=== PATIENT | female | born 1990 | race Two or more races ===

== ENCOUNTER 2018-01-01 16:37 | Outpatient (CLI) | payer OTHER ==
--- NOTE | 2018-01-01 17:49 | Non Stress Test Report ---
Non Stress Test Datetime Report Generated by CPN: 01/01/2018 17:48 DEMOGRAPHIC EGA NST: 35.4 INDICATION Indication for Study: Ordered by Provider MONITORING Monitor Explained: Monitor Explained; Test Explained; Patient Verbalized Understanding Time on Monitor: 01/01/2018 16:48 Time off Monitor: 01/01/2018 17:24 NST Duration: 36 NST INTERVENTIONS NST Interventions: PO Hydration; Reposition Patient Physician Notified NST: Dr. Shar BABY A: [id number] BABY A Movement : Present Contraction Frequency : irregular FHR Baseline : 130 Accelerations : 15X15 Decelerations : None Variability : Moderate 6-25bpm NST Review: Meets Criteria for Reactive NST NST Review and Verified By : Marta Cruz RN NST REPORT Report Trigger: Send Report
== END 2018-01-01 17:34 | disposition home or self-care (01) ==
LOC: LC 16:37
PROVIDERS: ATTEND Obstetrics & Gynecology
PROC: 4A1HXCZ Monitoring of Products of Conception, Cardiac Rate, External Approach (ICD-10-PCS; principal; 2018-01-01)
DX: Z34.93 Encounter for supervision of normal pregnancy, unspecified, third trimester (principal)
CPT/HCPCS: 59025

== ENCOUNTER 2018-01-05 16:41 | Outpatient (CLI) | payer OTHER ==
[2018-01-05 17:23] LABS: APPEARANCE,URINE SLIGHTLY-CLOUDY; BILIRUBIN,URINE NEGATIVE (NEGATIVE); COLOR,URINE YELLOW; GLUCOSE, URINE NEGATIVE (NEGATIVE); KETONES,URINE NEGATIVE (NEGATIVE); LEUKOCYTE ESTERASE,URINE MODERATE (NEGATIVE); NITRITE,URINE NEGATIVE (NEGATIVE); PROTEIN,URINE >=500 mg/dL (NEGATIVE); URINE SPECIFIC GRAVITY 1.007; UROBILINOGEN,URINE NEGATIVE mg/dL (<2.0)
[2018-01-05 17:35] LABS: ABSOLUTE LYMPHOCYTES (AUTO) 1.6 10^3/uL (0.5-4.7); ABSOLUTE MONOCYTES (AUTO) 0.3 10^3/uL (0.1-1.4); ABSOLUTE NEUT (AUTO) 3.7 10^3/uL (1.7-8.2); BASOPHILS % (AUTO) 0.5 % (0-2); EOSINOPHILS % (AUTO) 0.2 % (0-6); HEMATOCRIT 32.9 % (36.0-47.0); LYMPHOCYTES % (AUTO) 28.7 % (13-45); MEAN CORPUSCULAR HEMOGLOBIN 27.2 pg (27.0-33.4); MEAN CORPUSCULAR HGB CONC 33.6 g/dL (32.0-36.0); MEAN CORPUSCULAR VOLUME 81 fl (80-97); MONOCYTES % (AUTO) 5.5 % (3-13); PLATELET COUNT 176 10^3/uL (150-450); RED BLOOD COUNT 4.06 10^6/uL (3.72-5.28); RED CELL DISTRIBUTION WIDTH 15.3 % (11.5-14.0); SEGMENTED NEUTROPHILS % (AUTO) 65.1 % (42-78); TOTAL CELLS COUNTED % (AUTO) 100 %; WHITE BLOOD COUNT 5.6 10^3/uL (4.0-10.5)
[2018-01-05 17:47] LABS: URINE CREATININE 41.4 mg/dL (16-327)
[2018-01-05 17:50] LABS: URINE PROTEIN 455.1 mg/dL (<12)
[2018-01-05 17:51] LABS: URINE AMPHETAMINES SCREEN NEGATIVE; URINE BARBITURATES SCREEN NEGATIVE; URINE BENZODIAZEPINES SCREEN NEGATIVE; URINE COCAINE SCREEN NEGATIVE; URINE MARIJUANA (THC) SCREEN NEGATIVE; URINE METHADONE SCREEN NEGATIVE; URINE PHENCYCLIDINE SCREEN NEGATIVE
[2018-01-05 17:58] LABS: ALANINE AMINOTRANSFERASE 32 U/L (9-52); ALBUMIN 2.8 g/dL (3.5-5.0); ALKALINE PHOSPHATASE 108 U/L (38-126); ANION GAP 8 (5-19); ASPARTATE AMINO TRANSFERASE 33 U/L (14-36); BILIRUBIN,DIRECT 0.1 mg/dL (0.0-0.4); BILIRUBIN,TOTAL 0.3 mg/dL (0.2-1.3); BLOOD UREA NITROGEN 9 mg/dL (7-20); CALCIUM 8.7 mg/dL (8.4-10.2); CARBON DIOXIDE 20 mmol/L (22-30); CHLORIDE 109 mmol/L (98-107); GLUCOSE 101 mg/dL (75-110); POTASSIUM 4.4 mmol/L (3.6-5.0); SODIUM 136.5 mmol/L (137-145); TOTAL PROTEIN 5.7 g/dL (6.3-8.2); URIC ACID 5.3 mg/dL (2.5-6.2)
== END 2018-01-05 18:48 | disposition home or self-care (01) ==
LOC: LC 16:41
PROVIDERS: ATTEND Student in an Organized Health Care Education/Training Program
DX: O13.3 Gestational [pregnancy-induced] hypertension without significant proteinuria, third trimester (principal); Z3A.36 36 weeks gestation of pregnancy
CPT/HCPCS: 36415; 59025; 80053; 80307; 81001; 82570; 83615; 84156; 84550; 85025

== ENCOUNTER 2018-01-08 10:03 | Inpatient (IN) | payer OTHER ==
--- NOTE | 2018-01-08 10:15 | Non Stress Test Report ---
Non Stress Test Datetime Report Generated by CPN: 01/08/2018 10:15 DEMOGRAPHIC EGA NST: 36.1 INDICATION Indication for Study: Gestational Hypertension MONITORING Monitor Explained: Monitor Explained; Test Explained; Patient Verbalized Understanding Time on Monitor: 01/05/2018 16:56 Time off Monitor: 01/05/2018 18:40 NST Duration: 104 NST INTERVENTIONS NST Interventions: PO Hydration Physician Notified NST: Dr. Barboza BABY A: [id number] BABY A Movement : Present Contraction Frequency : 0 FHR Baseline : 120 Accelerations : 15X15 Decelerations : None Variability : Moderate 6-25bpm NST Review and Verified By : SAVANNAH Aleman NST Results: Reactive NST REPORT Report Trigger: Send Report
[2018-01-08 10:52] LABS: ABSOLUTE LYMPHOCYTES (AUTO) 1.4 10^3/uL (0.5-4.7); ABSOLUTE MONOCYTES (AUTO) 0.3 10^3/uL (0.1-1.4); BASOPHILS % (AUTO) 0.5 % (0-2); EOSINOPHILS % (AUTO) 0.2 % (0-6); HEMATOCRIT 34.1 % (36.0-47.0); HEMOGLOBIN 11.5 g/dL (12.0-15.5); LYMPHOCYTES % (AUTO) 24.1 % (13-45); MEAN CORPUSCULAR HEMOGLOBIN 27.3 pg (27.0-33.4); MEAN CORPUSCULAR HGB CONC 33.7 g/dL (32.0-36.0); MEAN CORPUSCULAR VOLUME 81 fl (80-97); MONOCYTES % (AUTO) 5.6 % (3-13); PLATELET COUNT 189 10^3/uL (150-450); RED BLOOD COUNT 4.21 10^6/uL (3.72-5.28); RED CELL DISTRIBUTION WIDTH 15.6 % (11.5-14.0); SEGMENTED NEUTROPHILS % (AUTO) 69.6 % (42-78); TOTAL CELLS COUNTED % (AUTO) 100 %; WHITE BLOOD COUNT 5.8 10^3/uL (4.0-10.5)
[2018-01-08 11:04] LABS: APPEARANCE,URINE CLOUDY; BILIRUBIN,URINE NEGATIVE (NEGATIVE); COLOR,URINE AMBER; GLUCOSE, URINE NEGATIVE (NEGATIVE); KETONES,URINE TRACE mg/dL (NEGATIVE); LEUKOCYTE ESTERASE,URINE TRACE (NEGATIVE); NITRITE,URINE NEGATIVE (NEGATIVE); PROTEIN,URINE >=500 mg/dL (NEGATIVE); URINE SPECIFIC GRAVITY 1.038; UROBILINOGEN,URINE NEGATIVE mg/dL (<2.0)
[2018-01-08 11:11] LABS: ALANINE AMINOTRANSFERASE 31 U/L (9-52); ALBUMIN 2.8 g/dL (3.5-5.0); ALKALINE PHOSPHATASE 110 U/L (38-126); ANION GAP 8 (5-19); ASPARTATE AMINO TRANSFERASE 33 U/L (14-36); BILIRUBIN,DIRECT 0.1 mg/dL (0.0-0.4); BILIRUBIN,TOTAL 0.3 mg/dL (0.2-1.3); BLOOD UREA NITROGEN 13 mg/dL (7-20); CARBON DIOXIDE 22 mmol/L (22-30); CHLORIDE 107 mmol/L (98-107); GLUCOSE 77 mg/dL (75-110); POTASSIUM 4.5 mmol/L (3.6-5.0); SODIUM 136.9 mmol/L (137-145); TOTAL PROTEIN 5.7 g/dL (6.3-8.2)
[2018-01-08 11:21] LABS: URINE BARBITURATES SCREEN NEGATIVE; URINE BENZODIAZEPINES SCREEN NEGATIVE; URINE COCAINE SCREEN NEGATIVE; URINE MARIJUANA (THC) SCREEN NEGATIVE; URINE METHADONE SCREEN NEGATIVE; URINE PHENCYCLIDINE SCREEN NEGATIVE
[2018-01-08 11:27] LABS: URINE AMPHETAMINES SCREEN NEGATIVE
[2018-01-08] MEDS ORDERED: OXYTOCIN/NORMAL SALINE 20 UNIT/1,000 ML RTUINJ IV PRN ×2 (13:08→20:37)
--- NOTE | 2018-01-08 14:15 | Admission Physical ---
Datetime Report Generated by CPN: 01/08/2018 14:14 CURRENT ADMISSION Chief Complaint: Sent from OB Office for Evaluation and Treatment - Please Specify Chief Complaint Other: sent by LUBA Bejarano for 9000mg protein iin urine. no sx pre-e. labs at [facility] normal Indication for Induction: IUGR; PreEclampsia Admit Impression : , Intrauterine ; No Active Labor Admit Plan: Admit to Unit; Initiate Labor Protocol Admit Plan- Other: after disussion with Dr Tang, admit for IOL, no magnesium for now ALLERGIES Medication Allergies: Yes Medication Allergies: amoxicillin/Hives (01/08/2018) Latex: No Latex Allergies Food Allergies: N/A Environmental Allergies: N/A OBSTETRICAL HISTORY EDC: 02/01/2018 00:00 : 4 Para: 1 Term: 1 : 0 IAB: 2 Ectopic: 0 Livin Cesareans: 0 VBACs: 0 Multiple Births: 0 Gestational Diabetes: No Rh Sensitization: No Incompetent Cervix: No MAITE: No Infertility: No ART Treatment: No Uterine Anomaly: No IUGR: No Hx Previous C/S: No Macrosomia: No Hx Loss/Stillborn: Yes PIH: No Hx : No Placenta Previa/Abruption: No Depression/PP Depression: No PTL/PROM: No Post Hemorrhage: No Current Procedures: Ultrasound; NST Obstetrical History Comments: Has had elevated B/P at office. Seen 01/05/18 for serial B/P. SEE RECORDS Alcohol: No Marijuana : No Cocaine: No Other Illicit Drugs: No Cigarettes: Unknown if ever Smoked. [id number] MEDICAL HISTORY Diabetes: No Blood Transfusion: No Pulmonary Disease (Asthma, TB): No Breast Disease: No Hypertension: No [employer] Surgery: No Heart Disease: No Hosp/Surgery: Yes Autoimmune Disorder: No Anesthetic Complications: No Kidney Disease: No Abnormal Pap Smear: Yes Neuro/Epilepsy: No Psychiatric Disorders: No Other Medical Diseases: No Hepatitis/Liver Disease: No Significant Family History: No Varicosities/Phlebitis: No Trauma/Violence : No Thyroid Dysfunction: No Medical History Comments: D_C in 2013 _ 2016, Abnormal Pap Smears- showed HPV but follow up test came back negative- 2011. INFECTIOUS HISTORY Gonorrhea: No Genital Herpes: No Chlamydia: No Tuberculosis: No Syphilis: No Hepatitis: No HIV/AIDS Exposure: No Rash or Viral Illness: No HPV: No PHYSICAL EXAM General: Normal HEENT: Normal Neurologic: Normal Thyroid: Deferred Heart: Normal Lungs: Normal Breast: Deferred Back: Normal Abdomen: Normal Genitourinary Exam: Normal Extremities: Normal DTRs: Normal Pelvic Type: Adequate Physical Exam Comments: DTRs 2+/2+. pelvis proven to 8#10 Vital Signs: Reviewed VAGINAL EXAM Dilatation: 2-3 Effacement: 50 Station: -1 Contraction Comments: rare FETUS A EGA: 36.4 Monitoring: External US FHR- Baseline: 130 Variability: Moderate 6-25bpm Accelerations: 15X15 Decelerations: None FHR Category: Category I Estimated Weight (gm): 2500 Presentation: Vertex Admit Comment: at 36+4 by LMP c/w 7w sono. admitted for IOL due to IUGR with increased dopplers and preeclampsia. comgt with dr Tang. GBS unknown-will treat, GBS result pending. P:pitocin, anticipate PLANS FOR LABOR AND DELIVERY Labor and Delivery: None Pain Management: Natural; Epidural Other Pain Management Plans: Natural as much as possilbe. Feeding Preference: Both Benefit of Breast Feed Discussed: Yes Circumcision: Yes INFORMED CONSENT Assignment: Jonathan Tang MD Signature: with User ID: [email or web address] : with User ID: [email or web address]
[2018-01-08] MEDS ORDERED: VANCOMYCIN HCL 1,000 MG in DEXTROSE 5%-WATER 250 ML IV SCH (15:00)
[2018-01-08] MEDS: RINGERS SOLUTION,LACTATED 1,000 ML IV PRN ×3 (15:53→20:05)
[2018-01-08] MEDS ORDERED: OXYTOCIN/NORMAL SALINE 20 UNIT/1,000 ML RTUINJ ONE ×2 (16:17→19:37)
[2018-01-08] MEDS ORDERED: ONDANSETRON HCL INJ/PF 4 MG/2 ML SDV ONE ×2 (16:18→22:39)
[2018-01-08] MEDS: VANCOMYCIN HCL 1,000 MG in DEXTROSE 5%-WATER 250 ML IV SCH (16:32)
[2018-01-08] MEDS ORDERED: PHENYLEPHRINE HCL INJ/PF 10 MG/1 ML SDV ONE (18:46)
[2018-01-08] MEDS ORDERED: FENTANYL CITRATE INJ/PF 100 MCG/2 ML AMPUL ONE (18:46)
[2018-01-08] MEDS ORDERED: EPHEDRINE SULFATE INJ 50 MG/1 ML AMPULE ONE (18:46)
[2018-01-08] MEDS ORDERED: FENTANYL/BUPIVACAINE/NS/PF 200 MCG/100 ML RTUINJ EPI ONE (18:46)
[2018-01-08] MEDS ORDERED: BUPIVACAINE HCL 0.5 % INJ/PF 30 ML SDV ONE ×2 (18:48→18:51)
[2018-01-08 19:31] LABS: ABSOLUTE BASOPHILS # (AUTO) 0.1 10^3/uL (0.0-0.2); ABSOLUTE LYMPHOCYTES (AUTO) 2.6 10^3/uL (0.5-4.7); ABSOLUTE MONOCYTES (AUTO) 0.5 10^3/uL (0.1-1.4); ABSOLUTE NEUT (AUTO) 5.5 10^3/uL (1.7-8.2); BASOPHILS % (AUTO) 1.2 % (0-2); HEMATOCRIT 38.7 % (36.0-47.0); LYMPHOCYTES % (AUTO) 30.5 % (13-45); MEAN CORPUSCULAR HEMOGLOBIN 27.1 pg (27.0-33.4); MEAN CORPUSCULAR HGB CONC 33.5 g/dL (32.0-36.0); MEAN CORPUSCULAR VOLUME 81 fl (80-97); MONOCYTES % (AUTO) 5.5 % (3-13); PLATELET COUNT 209 10^3/uL (150-450); RED BLOOD COUNT 4.79 10^6/uL (3.72-5.28); RED CELL DISTRIBUTION WIDTH 15.6 % (11.5-14.0); SEGMENTED NEUTROPHILS % (AUTO) 62.8 % (42-78); TOTAL CELLS COUNTED % (AUTO) 100 %; WHITE BLOOD COUNT 8.7 10^3/uL (4.0-10.5)
[2018-01-08] MEDS ORDERED: OXYTOCIN 10 UNIT/ML VIAL ONE (19:36)
[2018-01-08] MEDS ORDERED: LIDOCAINE 1% INJ-PF (10 MG/ML) 30 ML SDV ONE (19:37)
[2018-01-08] MEDS ORDERED: MISOPROSTOL 0.2 MG TABLET ONE ×2 (19:37→22:03)
[2018-01-08] MEDS ORDERED: ZOLPIDEM TARTRATE 5 MG TABLET PO PRN (20:37)
[2018-01-08] MEDS ORDERED: DIPH/PERTUSS(ACELL)/TETANUS VAC/PF 0.5 ML SYR (>=10YO) IM PRN (20:37)
[2018-01-08] MEDS ORDERED: PROMETHAZINE HCL 25 MG SUPP.RECT PR PRN (20:37)
[2018-01-08] MEDS ORDERED: BENZOCAINE/MENTHOL AEROSOL SPRAY 56 ML TOP PRN (20:37)
[2018-01-08] MEDS ORDERED: DIPHENHYDRAMINE HCL 25 MG CAPSULE PO PRN (20:37)
[2018-01-08] MEDS ORDERED: PROMETHAZINE HCL 25 MG TABLET PO PRN (20:37)
[2018-01-08] MEDS ORDERED: PSEUDOEPHEDRINE HCL 30 MG TABLET PO PRN (20:37)
[2018-01-08] MEDS ORDERED: PROMETHAZINE HCL INJ 25 MG/1 ML VIAL IV PRN (20:37)
[2018-01-08] MEDS ORDERED: GLYCERIN/WITCH HAZEL LEAF 1 EACH MED..PAD TP PRN (20:37)
[2018-01-08] MEDS ORDERED: MEASLES,MUMPS&RUBELLA VACC/PF 0.5 ML VIAL SUBCUT PRN (20:37)
[2018-01-08] MEDS ORDERED: ACETAMINOPHEN WITH CODEINE #3 TABLET PO PRN (20:37)
[2018-01-08] MEDS ORDERED: ACETAMINOPHEN 650 MG SUPP.RECT PR PRN (20:37)
[2018-01-08] MEDS ORDERED: MAGNESIUM HYDROXIDE SUSP 30 ML UDCUP PO PRN (20:37)
[2018-01-08] MEDS ORDERED: NA PHOS,M-B/NA PHOS,DI-BA (ADULT) 133 ML ENEMA PR PRN (20:37)
[2018-01-08] MEDS ORDERED: DIBUCAINE 1% OINTMENT 28 GM TP PRN (20:37)
--- NOTE | 2018-01-08 20:41 | PDOC DELIVERY SUMMARY ---
Delivery Summary - Maternal Risk Factors: Labor <37 wks Ruptured Membranes: AROM Fluids: Clear - Delivery Labor: Induction Presentation: Vertex Uterine Contraction Monitoring: External Support Person Present: Yes Placenta: Within Normal Limits Nuchal Cord: No - Medications Type of Anesthesia:: Epidural
[2018-01-08] MEDS ORDERED: MISOPROSTOL 0.1 MG TABLET PR ONE (21:00)
[2018-01-08] MEDS ORDERED: IBUPROFEN 800 MG TABLET ONE (21:18)
[2018-01-08] MEDS: IBUPROFEN 800 MG TABLET PO SCH (21:19)
[2018-01-08] MEDS ORDERED: TRANEXAMIC ACID INJ/PF 1,000 MG/10 ML SDV IV ONE ×2 (21:50→22:25)
[2018-01-08 22:17] LABS: HEMATOCRIT 27.1 % (36.0-47.0); MEAN CORPUSCULAR HEMOGLOBIN 27.6 pg (27.0-33.4); MEAN CORPUSCULAR HGB CONC 33.8 g/dL (32.0-36.0); MEAN CORPUSCULAR VOLUME 82 fl (80-97); PLATELET COUNT 213 10^3/uL (150-450); RED BLOOD COUNT 3.32 10^6/uL (3.72-5.28); RED CELL DISTRIBUTION WIDTH 15.4 % (11.5-14.0)
[2018-01-08] MEDS ORDERED: CARBOPROST TROMETHAMINE INJ 250 MCG/1 ML AMPULE ONE (22:23)
[2018-01-08] MEDS ORDERED: METHYLERGONOVINE MALEATE INJ/PF 0.2 MG/1 ML AMPULE ONE (22:23)
[2018-01-08 22:36] LABS: HEMOGLOBIN 9.2 g/dL (12.0-15.5)
[2018-01-08] MEDS ORDERED: ONDANSETRON HCL INJ/PF 4 MG/2 ML SDV IV ONE (23:00)
--- NOTE | 2018-01-08 23:02 | Warning Signs in Babies ---
VOD Warning Signs Datetime Report Generated by [facility]: 01/08/2018 23:01 VOD#[id number] -Warning Signs in Babies: Needs to be viewed. (01/01/2018 17:20:Cristina Meraz RN)
[2018-01-09] MEDS ORDERED: NORMAL SALINE 250 ML IV PRN (00:14)
[2018-01-09 00:18] LABS: HEMATOCRIT 25.5 % (36.0-47.0); HEMOGLOBIN 8.4 g/dL (12.0-15.5); MEAN CORPUSCULAR HGB CONC 32.9 g/dL (32.0-36.0); MEAN CORPUSCULAR VOLUME 82 fl (80-97); PLATELET COUNT 220 10^3/uL (150-450); RED CELL DISTRIBUTION WIDTH 15.7 % (11.5-14.0); WHITE BLOOD COUNT 21.2 10^3/uL (4.0-10.5)
[2018-01-09] MEDS ORDERED: LOPERAMIDE HCL 2 MG CAPSULE PO ONE (00:25)
[2018-01-09] MEDS ORDERED: LOPERAMIDE HCL 2 MG CAPSULE ONE (00:38)
--- NOTE | 2018-01-09 02:50 | Delivery Summary ---
Del Sum A-C Datetime Report Generated by CPN: 01/09/2018 02:50 DELIVERY PERSONNEL DELIVERY PERSONNEL: [id number] Delivery Doctor:: Jonathan Tang MD Labor and Delivery Nurse:: Cristina Meraz RN Correspondent/WASHING MACHINE STRIPER: Giorgio Ertel, WASHING MACHINE STRIPER MATERNAL INFORMATION Delivery Anesthesia: Epidural Medications After Delivery: Pitocin Bolus-Please Comment; Pitocin Drip 20 Units/1000ml NSS; Other-Please Comment Meds After Delivery Comment: NS with Pitocin 20 units/liter IVF bolus x 2 liters, Cytotec 1000mcg IN, Hemobate 250mcg IM, and TXA 1 gram IV. Received 2 units PRBC Maternal Complications: Hemorrhage; Other Other Maternal Complications: pre-eclampsia Complication Details: Severe Preeclampsia, hemmorhage received multiple medications and blood products. See records for further documentation. LABOR SUMMARY EDC: 02/01/2018 00:00 No. Babies in Womb: 1 Attempted: No Labor Anesthesia: Epidural LABOR INFORMATION Reason for Induction: Intrauterine Growth Retardation; Pre-Eclampsia Onset of Labor: 01/08/2018 17:04 Complete Dilatation: 01/08/2018 20:12 Oxytocin: Induction Group B Beta Strep: unknown Antibiotics # of Doses: 1 Antibiotics Time of Last Dose: 1600 Name of Antibiotic Given: Vanomycin Steroids Given: None Reason Steroids Not Administered: Not Applicable MEMBRANES Membranes Rupture Method: Artificial Rupture of Membranes: 01/08/2018 17:02 Length of Rupture (hr): 3.40 Amniotic Fluid Color: Bloody Amniotic Fluid Amount: Moderate Amniotic Fluid Odor: None STAGES OF LABOR Stage 1 hr: 3 Stage 1 min: 8 Stage 2 hr: 0 Stage 2 min: 14 Stage 3 hr: 0 Stage 3 min: 4 Total Time in Labor hr: 3 Total Time in Labor min: 26 VAGINAL DELIVERY Episiotomy: None Laceration #1: Vaginal Laceration Extension #1: N/A Laceration Repair: No Laceration Repair Note: vaginal scrape Sponge Count Correct: Yes Sharps Count Correct: Yes CSECTION DELIVERY Primary Indication: N/A Secondary Indication: N/A CSection Incidence: N/A CSection Incision: N/A BABY A INFORMATION Infant Delivery Date/Time: 01/08/2018 20:26 Method of Delivery: Vaginal Born in Route : No : N/A Forceps: N/A Vacuum Extraction: N/A Shoulder Dystocia : No PRESENTATION/POSITION BABY A Presentation: Cephalic Cephalic Presentation: Vertex Vertex Position: Left Occipital Anterior Breech Presentation: N/A PLACENTA INFORMATION BABY A Placenta Delivery Time : 01/08/2018 20:30 Placenta Method of Delivery: Spontaneous Placenta Status: Delivered SCORES BABY A Heart Rate 1 min: >100 bpm Resp Effort 1 min: Good Cry Reflex Irritability 1 min: Cough or Sneeze or Pulls Away Muscle Tone 1 min: Active Motion Color 1 min: Blue/Pale Resuscitation Effort 1 min: Tactile Stimulation SCORE 1 MIN: 8 Heart Rate 5 min: >100 bpm Resp Effort 5 min: Good Cry Reflex Irritability 5 min: Cough or Sneeze or Pulls Away Muscle Tone 5 min: Active Motion Color 5 min: Body [place], Extremities Blue Resuscitation Effort 5 min: Tactile Stimulation SCORE 5 MIN: 9 INFORMATION BABY A Gestational Age at Delivery: 36.4 Gestational Status: Late - 34- 36.6 Weeks Infant Outcome : Liveborn Condition : Stable Sex: Male IDENTIFICATION BABY A Verification Date/Time: 01/08/2018 20:37 ID Band Number: [id number] Mother's Name Verified: Yes RN Verifying : rn harsh Additional Verifying Personnel: emissions repair technician ertel WEIGHT/LENGTH BABY A Birthweight (gm): 2360 Weight (lb): 5 Weight (oz): 3 Infant Length (in): 17.75 Infant Length (cm): 45.09 CORD INFORMATION BABY A No. Cord Vessels: 3 Nuchal Cord : loose body cord x 1 Cord Blood Taken: Yes-For Storage (Mom's Blood type +) Infant Suction: Mouth ASSESSMENT BABY A Infant Complications: None Physical Findings at Delivery: Within Normal Limits Respirations: Appears Normal Skin to Skin: Yes Real Estate Leasing Agent/ALS Called : No Care By: RN Florencio and RN Merrill Transferred To: Remains with Mother BABY B INFORMATION : N/A SIGNATURES Signature: with User ID: [email or web address] : I was personally available for consultation and serving as supervising physician for the MLP.
[2018-01-09] MEDS: RINGERS SOLUTION,LACTATED 1,000 ML IV PRN (04:45)
[2018-01-09] MEDS: IBUPROFEN 800 MG TABLET PO SCH ×3 (07:02→22:37)
[2018-01-09] MEDS: FAMOTIDINE 20 MG TABLET PO SCH ×3 (07:04→22:37)
[2018-01-09] MEDS: VANCOMYCIN HCL 1,000 MG in DEXTROSE 5%-WATER 250 ML IV SCH (07:09)
[2018-01-09 08:58] LABS: HEMATOCRIT 29.7 % (36.0-47.0); HEMOGLOBIN 10.1 g/dL (12.0-15.5); MEAN CORPUSCULAR HEMOGLOBIN 28.1 pg (27.0-33.4); MEAN CORPUSCULAR VOLUME 83 fl (80-97); PLATELET COUNT 165 10^3/uL (150-450); RED CELL DISTRIBUTION WIDTH 15.6 % (11.5-14.0); WHITE BLOOD COUNT 20.6 10^3/uL (4.0-10.5)
[2018-01-09] MEDS ORDERED: IBUPROFEN 800 MG TABLET ONE (10:17)
--- NOTE | 2018-01-09 11:41 | PDOC PROGRESS REPORT ---
Subjective-OB Progress Note for:: 01/09/18 Subjective: states she is feeling much better since blood transfusion Physical Exam (OB) Vital Signs: Temp Pulse Resp BP Pulse Ox 99.6 F 75 16 92/56 L 100 01/09/18 06:46 01/09/18 06:46 01/09/18 06:46 01/09/18 06:46 01/09/18 06:46 Intake & Output 01/08/18 01/09/18 01/10/18 06:59 06:59 06:59 Intake Total 2455 Balance 2455 Weight 77.3 kg - Lochia Lochia Amount: Scant < 10 ml Lochia Color: Rubra/Red - Abdomen Fundal Description: Firm Fundal Height: u/u - u/2 - Abdominal Inspection: Normal Distension: No distension Tenderness: Nontender - Genitourinary Female External exam: Normal - Extremities Lower extremities: Rosie's sign - neg Calf: Normal, Nontender Objective-Diagnostic Laboratory: 01/09/18 08:02 01/08/18 10:37 01/08/18 01/08/18 01/08/18 13:56 19:20 22:09 WBC 8.7 21.0 H D RBC 4.79 3.32 L Hgb 13.0 9.2 L D Hct 38.7 27.1 L MCV 81 82 MCH 27.1 27.6 MCHC 33.5 33.8 RDW 15.6 H 15.4 H Plt Count 209 213 Seg Neutrophils % 62.8 Lymphocytes % 30.5 Monocytes % 5.5 Eosinophils % 0.0 Basophils % 1.2 Absolute Neutrophils 5.5 Absolute Lymphocytes 2.6 Absolute Monocytes 0.5 Absolute Eosinophils 0.0 Absolute Basophils 0.1 Blood Type A POSITIVE Antibody Screen NEGATIVE 01/09/18 01/09/18 00:03 08:02 WBC 21.2 H 20.6 H RBC 3.10 L 3.60 L Hgb 8.4 L 10.1 L Hct 25.5 L 29.7 L MCV 82 83 MCH 27.0 28.1 MCHC 32.9 34.0 RDW 15.7 H 15.6 H Plt Count 220 165 Seg Neutrophils % Lymphocytes % Monocytes % Eosinophils % Basophils % Absolute Neutrophils Absolute Lymphocytes Absolute Monocytes Absolute Eosinophils Absolute Basophils Blood Type Antibody Screen Assessment and Plan(PN) - Assessment and Plan (1) Vaginal delivery Is this a current diagnosis for this admission?: Yes (2) Anemia due to acute blood loss Is this a current diagnosis for this admission?: Yes (3) hemorrhage Is this a current diagnosis for this admission?: Yes (5) Pre-eclampsia affecting childbirth Is this a current diagnosis for this admission?: Yes - Time Spent with Patient Time with patient: Less than 15 minutes - Disposition Anticipated Discharge: Home Within: within 48 hours
[2018-01-09] MEDS: FERROUS SULFATE 325 MG TABLET PO SCH ×2 (16:02→18:10)
[2018-01-09] MEDS: DOCUSATE SODIUM 100 MG CAPSULE PO SCH ×2 (16:02→18:10)
[2018-01-09] MEDS: PRENATAL VITAMIN W DHA CAPSULE PO SCH (16:03)
[2018-01-09] MEDS: SENNOSIDES/DOCUSATE 8.6-50 MG 1 EACH TABLET PO SCH (16:03)
[2018-01-10] MEDS: IBUPROFEN 800 MG TABLET PO SCH ×3 (06:10→21:12)
[2018-01-10 07:15] LABS: ABSOLUTE LYMPHOCYTES (AUTO) 2.9 10^3/uL (0.5-4.7); ABSOLUTE MONOCYTES (AUTO) 0.8 10^3/uL (0.1-1.4); ABSOLUTE NEUT (AUTO) 7.9 10^3/uL (1.7-8.2); BASOPHILS % (AUTO) 0.3 % (0-2); EOSINOPHILS % (AUTO) 0.4 % (0-6); HEMATOCRIT 21.5 % (36.0-47.0); LYMPHOCYTES % (AUTO) 24.7 % (13-45); MEAN CORPUSCULAR HEMOGLOBIN 28.5 pg (27.0-33.4); MEAN CORPUSCULAR HGB CONC 34.6 g/dL (32.0-36.0); MEAN CORPUSCULAR VOLUME 82 fl (80-97); MONOCYTES % (AUTO) 6.8 % (3-13); PLATELET COUNT 126 10^3/uL (150-450); RED BLOOD COUNT 2.62 10^6/uL (3.72-5.28); RED CELL DISTRIBUTION WIDTH 15.9 % (11.5-14.0); SEGMENTED NEUTROPHILS % (AUTO) 67.8 % (42-78); TOTAL CELLS COUNTED % (AUTO) 100 %; WHITE BLOOD COUNT 11.7 10^3/uL (4.0-10.5)
[2018-01-10 07:16] LABS: HEMOGLOBIN 7.4 g/dL (12.0-15.5)
[2018-01-10 07:49] LABS: ALANINE AMINOTRANSFERASE 30 U/L (9-52); ALBUMIN 1.9 g/dL (3.5-5.0); ALKALINE PHOSPHATASE 69 U/L (38-126); ASPARTATE AMINO TRANSFERASE 47 U/L (14-36); BLOOD UREA NITROGEN 13 mg/dL (7-20); CALCIUM 7.7 mg/dL (8.4-10.2); GLUCOSE 69 mg/dL (75-110); POTASSIUM 4.4 mmol/L (3.6-5.0); URIC ACID 5.7 mg/dL (2.5-6.2)
[2018-01-10 07:54] LABS: CARBON DIOXIDE 23 mmol/L (22-30); CHLORIDE 113 mmol/L (98-107); SODIUM 139.7 mmol/L (137-145)
[2018-01-10 07:57] LABS: BILIRUBIN,TOTAL < 0.1 mg/dL (0.2-1.3)
[2018-01-10 07:58] LABS: ANION GAP 4 (5-19)
[2018-01-10] MEDS: FAMOTIDINE 20 MG TABLET PO SCH ×2 (10:44→21:12)
[2018-01-10] MEDS: SENNOSIDES/DOCUSATE 8.6-50 MG 1 EACH TABLET PO SCH (10:44)
[2018-01-10] MEDS: DOCUSATE SODIUM 100 MG CAPSULE PO SCH ×2 (10:44→18:28)
[2018-01-10] MEDS: FERROUS SULFATE 325 MG TABLET PO SCH ×2 (10:44→18:28)
[2018-01-10] MEDS: PRENATAL VITAMIN W DHA CAPSULE PO SCH (10:44)
--- NOTE | 2018-01-10 11:28 | PDOC PROGRESS REPORT ---
Subjective-OB Progress Note for:: 01/10/18 Subjective: reports bleeding slowing, pain controlled with current meds. denies needs Physical Exam (OB) Vital Signs: Temp Pulse Resp BP Pulse Ox 98.7 F 75 16 129/87 H 100 01/10/18 07:46 01/10/18 07:46 01/10/18 07:46 01/10/18 07:46 01/10/18 07:46 Intake & Output 01/09/18 01/10/18 01/11/18 06:59 06:59 06:59 Intake Total 2455 2200 120 Output Total 1240 Balance 2455 960 120 Weight 77.3 kg - Abdomen Description: Soft Hernia Present: No Fundal Description: Firm, Midline Fundal Height: u/u - u/2 - Abdominal Distension: No distension Tenderness: Nontender - Extremities Lower extremities: Rosie's sign - neg Calf: Normal, Nontender Objective-Diagnostic Laboratory: 01/10/18 06:27 01/10/18 06:27 01/08/18 01/10/18 01/10/18 13:56 06:27 06:27 WBC 11.7 H RBC 2.62 L Hgb 7.4 L D Hct 21.5 L MCV 82 MCH 28.5 MCHC 34.6 RDW 15.9 H Plt Count 126 L Seg Neutrophils % 67.8 Lymphocytes % 24.7 Monocytes % 6.8 Eosinophils % 0.4 Basophils % 0.3 Absolute Neutrophils 7.9 Absolute Lymphocytes 2.9 Absolute Monocytes 0.8 Absolute Eosinophils 0.0 Absolute Basophils 0.0 Sodium 139.7 Potassium 4.4 Chloride 113 H Carbon Dioxide 23 Anion Gap 4 L BUN 13 Creatinine 0.74 Est GFR ( Amer) > 60 Est GFR (Non-Af Amer) > 60 Glucose 69 L Uric Acid 5.7 Calcium 7.7 L Total Bilirubin < 0.1 L AST 47 H ALT 30 Alkaline Phosphatase 69 Total Protein 4.0 L Albumin 1.9 L Blood Type A POSITIVE Antibody Screen NEGATIVE Assessment and Plan(PN) - Assessment and Plan (1) Vaginal delivery Is this a current diagnosis for this admission?: Yes (2) Anemia due to acute blood loss Is this a current diagnosis for this admission?: Yes (3) hemorrhage Is this a current diagnosis for this admission?: Yes (4) Intrauterine growth restriction (IUGR) affecting care of mother Is this a current diagnosis for this admission?: Yes (5) Pre-eclampsia affecting childbirth Is this a current diagnosis for this admission?: Yes - Time Spent with Patient Time with patient: Less than 15 minutes - Disposition Anticipated Discharge: Home Within: within 48 hours
[2018-01-10 13:35] LABS: CHLAM PCR NOT DETECTED (NOT DETECT); GON PCR NOT DETECTED (NOT DETECT)
[2018-01-10 21:14] LABS: HEMATOCRIT 30.7 % (36.0-47.0); HEMOGLOBIN 10.5 g/dL (12.0-15.5); MEAN CORPUSCULAR HGB CONC 34.3 g/dL (32.0-36.0); MEAN CORPUSCULAR VOLUME 85 fl (80-97); PLATELET COUNT 153 10^3/uL (150-450); RED BLOOD COUNT 3.63 10^6/uL (3.72-5.28); RED CELL DISTRIBUTION WIDTH 15.8 % (11.5-14.0); WHITE BLOOD COUNT 12.8 10^3/uL (4.0-10.5)
[2018-01-11] MEDS: IBUPROFEN 800 MG TABLET PO SCH (06:02)
[2018-01-11 07:04] LABS: ABSOLUTE BASOPHILS # (AUTO) 0.1 10^3/uL (0.0-0.2); ABSOLUTE EOSINOPHILS # (AUTO) 0.1 10^3/uL (0.0-0.6); ABSOLUTE LYMPHOCYTES (AUTO) 2.3 10^3/uL (0.5-4.7); ABSOLUTE MONOCYTES (AUTO) 0.6 10^3/uL (0.1-1.4); ABSOLUTE NEUT (AUTO) 6.7 10^3/uL (1.7-8.2); BASOPHILS % (AUTO) 0.9 % (0-2); EOSINOPHILS % (AUTO) 0.6 % (0-6); HEMATOCRIT 27.4 % (36.0-47.0); HEMOGLOBIN 9.5 g/dL (12.0-15.5); LYMPHOCYTES % (AUTO) 23.5 % (13-45); MEAN CORPUSCULAR HEMOGLOBIN 29.2 pg (27.0-33.4); MEAN CORPUSCULAR HGB CONC 34.8 g/dL (32.0-36.0); MEAN CORPUSCULAR VOLUME 84 fl (80-97); MONOCYTES % (AUTO) 6.3 % (3-13); PLATELET COUNT 116 10^3/uL (150-450); RED BLOOD COUNT 3.26 10^6/uL (3.72-5.28); RED CELL DISTRIBUTION WIDTH 15.8 % (11.5-14.0); SEGMENTED NEUTROPHILS % (AUTO) 68.7 % (42-78); TOTAL CELLS COUNTED % (AUTO) 100 %; WHITE BLOOD COUNT 9.7 10^3/uL (4.0-10.5)
[2018-01-11 07:18] LABS: ALANINE AMINOTRANSFERASE 30 U/L (9-52); ALKALINE PHOSPHATASE 76 U/L (38-126); ANION GAP 5 (5-19); ASPARTATE AMINO TRANSFERASE 40 U/L (14-36); BILIRUBIN,DIRECT 0.1 mg/dL (0.0-0.4); BILIRUBIN,TOTAL 0.2 mg/dL (0.2-1.3); BLOOD UREA NITROGEN 9 mg/dL (7-20); CALCIUM 7.8 mg/dL (8.4-10.2); CARBON DIOXIDE 23 mmol/L (22-30); CHLORIDE 111 mmol/L (98-107); GLUCOSE 67 mg/dL (75-110); POTASSIUM 4.2 mmol/L (3.6-5.0); SODIUM 139.3 mmol/L (137-145); TOTAL PROTEIN 4.1 g/dL (6.3-8.2)
[2018-01-11 08:52] VITALS: BP 139/93
[2018-01-11] MEDS: SENNOSIDES/DOCUSATE 8.6-50 MG 1 EACH TABLET PO SCH (09:55)
[2018-01-11] MEDS: PRENATAL VITAMIN W DHA CAPSULE PO SCH (09:55)
[2018-01-11] MEDS: FERROUS SULFATE 325 MG TABLET PO SCH (09:55)
[2018-01-11] MEDS: FAMOTIDINE 20 MG TABLET PO SCH (09:55)
[2018-01-11] MEDS: DOCUSATE SODIUM 100 MG CAPSULE PO SCH (09:55)
--- NOTE | 2018-01-11 10:00 | PDOC PROGRESS REPORT ---
Subjective-OB Progress Note for:: 01/11/18 Subjective: PP Day#3, bottle feeding, A+, Rubella Immune. S/p 2 units PRBC due to PPH. Pt up and out of the bed this morning, states she is feeling much better, no complaints. Afebrile x 24 hours. VSS Physical Exam (OB) Vital Signs: Temp Pulse Resp BP Pulse Ox 98.7 F 74 17 139/93 H 99 01/11/18 08:52 01/11/18 08:52 01/11/18 08:52 01/11/18 08:52 01/11/18 08:52 Intake & Output 01/10/18 01/11/18 01/12/18 06:59 06:59 06:59 Intake Total 2200 720 Output Total 1240 Balance 960 720 - General General Appearance: Appears well, Alert In distress: None - PIH/Pre-Eclampsia DTR's: 1 + Clonus: Negative Headache: Absent Epigastric Pain: No Visual Changes: No - Lochia Lochia Amount: Small 10-25 ml Lochia Color: Rubra/Red - Abdomen Description: Soft, Round Hernia Present: No Fundal Description: Firm, Midline Fundal Height: u/u - u/2 - Respiratory Respiratory Status: No respiratory distress - Genitourinary Genitourinary Note: voiding - Extremities Upper extremity: Normal inspection Lower extremities: Edema - 1+ - Neurological Cognition: Normal Orientation: AAOx4 - Psychological Associated symptoms: Normal affect, Normal mood Objective-Diagnostic Laboratory: 01/11/18 06:40 01/11/18 06:40 01/08/18 01/10/18 01/11/18 13:56 20:30 06:40 WBC 12.8 H 9.7 RBC 3.63 L 3.26 L Hgb 10.5 L D 9.5 L Hct 30.7 L 27.4 L MCV 85 84 MCH 29.0 29.2 MCHC 34.3 34.8 RDW 15.8 H 15.8 H Plt Count 153 116 L Seg Neutrophils % 68.7 Lymphocytes % 23.5 Monocytes % 6.3 Eosinophils % 0.6 Basophils % 0.9 Absolute Neutrophils 6.7 Absolute Lymphocytes 2.3 Absolute Monocytes 0.6 Absolute Eosinophils 0.1 Absolute Basophils 0.1 Sodium Potassium Chloride Carbon Dioxide Anion Gap BUN Creatinine Est GFR ( Amer) Est GFR (Non-Af Amer) Glucose Uric Acid Calcium Total Bilirubin AST ALT Alkaline Phosphatase Total Protein Albumin Blood Type A POSITIVE Antibody Screen NEGATIVE 01/11/18 06:40 WBC RBC Hgb Hct MCV MCH MCHC RDW Plt Count Seg Neutrophils % Lymphocytes % Monocytes % Eosinophils % Basophils % Absolute Neutrophils Absolute Lymphocytes Absolute Monocytes Absolute Eosinophils Absolute Basophils Sodium 139.3 Potassium 4.2 Chloride 111 H Carbon Dioxide 23 Anion Gap 5 BUN 9 Creatinine 0.61 Est GFR ( Amer) > 60 Est GFR (Non-Af Amer) > 60 Glucose 67 L Uric Acid 5.0 Calcium 7.8 L Total Bilirubin 0.2 AST 40 H ALT 30 Alkaline Phosphatase 76 Total Protein 4.1 L Albumin 2.0 L Blood Type Antibody Screen Assessment and Plan(PN) - Assessment and Plan (1) Anemia due to acute blood loss Is this a current diagnosis for this admission?: Yes (2) hemorrhage Is this a current diagnosis for this admission?: Yes (3) Vaginal delivery Is this a current diagnosis for this admission?: Yes (4) Intrauterine growth restriction (IUGR) affecting care of mother Qualifiers: Fetus number: single or unspecified fetus Trimester: third trimester Qualified Code(s): O36.5930 - Maternal care for other known or suspected poor growth, third trimester, not applicable or unspecified Is this a current diagnosis for this admission?: Yes (5) Pre-eclampsia affecting childbirth Is this a current diagnosis for this admission?: Yes - Time Spent with Patient Time with patient: Less than 15 minutes Medications reviewed and adjusted accordingly: Yes - Disposition Anticipated Discharge: Home Disposition: stable condition
--- NOTE | 2018-01-19 15:24 | PDOC DISCHARGE SUMMARY ---
Final Diagnosis Discharge Date: 01/11/18 - Final Diagnosis (1) Anemia due to acute blood loss Is this a current diagnosis for this admission?: Yes (2) hemorrhage Is this a current diagnosis for this admission?: Yes (3) Vaginal delivery Is this a current diagnosis for this admission?: Yes (4) Intrauterine growth restriction (IUGR) affecting care of mother Is this a current diagnosis for this admission?: Yes (5) Pre-eclampsia affecting childbirth Is this a current diagnosis for this admission?: Yes Discharge Data - Discharge Medication Prescriptions: Ferrous Sulfate [Feosol 325 mg Tablet] 325 mg PO DAILY #30 tablet Ibuprofen [Motrin 800 mg Tablet] 800 mg PO Q8 PRN #48 tablet PRN Reason: Pain Scale Of 2 Home Medications: Vit/Iron Fum/Folic AC [ Tablet] 1 tab PO DAILY 01/01/18 Ferrous Sulfate [Feosol 325 mg Tablet] 325 mg PO DAILY #30 tablet 01/11/18 Ibuprofen [Motrin 800 mg Tablet] 800 mg PO Q8 PRN #48 tablet 01/11/18 Reason(s) for Admission: Induction of Labor, Obstetric Complications Procedures: Ultrasound - Diagnosis Test Laboratory: Temp Pulse Resp BP Pulse Ox 98.7 F 74 17 139/93 H 99 01/11/18 12:02 01/11/18 12:02 01/11/18 12:02 01/11/18 12:02 01/11/18 12:02 01/08/18 01/08/18 01/08/18 10:10 10:37 19:20 RBC 4.21 4.79 Hgb 11.5 L 13.0 Hct 34.1 L 38.7 Urine Opiates Screen NEGATIVE 01/08/18 01/09/18 01/09/18 22:09 00:03 08:02 RBC 3.32 L 3.10 L 3.60 L Hgb 9.2 L D 8.4 L 10.1 L Hct 27.1 L 25.5 L 29.7 L Urine Opiates Screen 01/10/18 01/10/18 01/11/18 06:27 20:30 06:40 RBC 2.62 L 3.63 L 3.26 L Hgb 7.4 L D 10.5 L D 9.5 L Hct 21.5 L 30.7 L 27.4 L Urine Opiates Screen - Discharge information/Instructions Discharge Activity: Activity As Tolerated, Energy Conservation, No Lifting Over 10 Pounds, Pelvic Rest, Slowly Increase Activity, No tub bath Discharge Diet: As Tolerated, Regular Disposition: HOME, SELF-CARE Follow up with: [facility] in: 3, Weeks
== END 2018-01-11 13:14 | disposition home or self-care (01) | DRG 774 ==
LOC: LC 10:03 → LR 12:43 → 2S 01-09 11:56
PROVIDERS: ADMIT Obstetrics & Gynecology Gynecology; ATTEND Obstetrics & Gynecology Gynecology
PROC: 10E0XZZ Delivery of Products of Conception, External Approach (ICD-10-PCS; principal; 2018-01-08)
PROC: 3E033VJ Introduction of Other Hormone into Peripheral Vein, Percutaneous Approach (ICD-10-PCS; 2018-01-08)
PROC: 10907ZC Drainage of Amniotic Fluid, Therapeutic from Products of Conception, Via Natural or Artificial Opening (ICD-10-PCS; 2018-01-08)
PROC: 4A1HXCZ Monitoring of Products of Conception, Cardiac Rate, External Approach (ICD-10-PCS; 2018-01-08)
PROC: 30233N1 Transfusion of Nonautologous Red Blood Cells into Peripheral Vein, Percutaneous Approach (ICD-10-PCS; 2018-01-09)
PROC: 30233N1 Transfusion of Nonautologous Red Blood Cells into Peripheral Vein, Percutaneous Approach (ICD-10-PCS; 2018-01-10)
DX: O14.14 Severe pre-eclampsia complicating childbirth (principal); O72.1 Other immediate postpartum hemorrhage; D62 Acute posthemorrhagic anemia; O99.02 Anemia complicating childbirth; O36.5930 Maternal care for other known or suspected poor fetal growth, third trimester, not applicable or unspecified; O60.14X0 Preterm labor third trimester with preterm delivery third trimester, not applicable or unspecified; O69.82X0 Labor and delivery complicated by other cord entanglement, without compression, not applicable or unspecified; Z88.1 Allergy status to other antibiotic agents; Z3A.36 36 weeks gestation of pregnancy; Z37.0 Single live birth
CPT/HCPCS: 36415; 36430; 80053; 80307; 81001; 83615; 84550; 85025; 85027; 86592; 86850; 86900; 86901; 86920; 87491; 87591; 88307; 94760; J2210; J2370; J2405; J2590; J3010; J3370; J3490; J7060; P9016

== ENCOUNTER 2018-01-23 17:13 | Emergency (ER) | payer OTHER ==
--- NOTE | 2018-01-23 17:31 | ER Document Report ---
ED GI/ - General Chief Complaint: Vaginal Bleeding Stated Complaint: VAGINAL BLEEDING, HEADACHE, CHILLS Time Seen by Provider: 01/23/18 17:30 Mode of Arrival: Ambulatory Information source: Patient Notes: Patient presented to the ED with complaints of vaginal bleeding. She also says she has been constipated since he started the iron tablets. TRAVEL OUTSIDE OF THE [place] IN LAST 30 DAYS: No - HPI Patient complains to provider of: Vaginal bleeding Onset: Other - Since after the delivery. Timing/Duration: Gradual, Waxing and waning Quality of pain: No pain Severity at maximum: Mild Severity in ED: Mild Pain Level: 1 Location: Vaginal Vaginal bleeding (Compared to normal period): Tobacco Wetter OB ultrasound done: Yes Sexual history: Active Associated symptoms: Fever - Related Data Allergies/Adverse Reactions: amoxicillin Allergy (Verified 01/08/18 10:16) Hives Past Medical History - Social History Smoking Status: Unknown if Ever Smoked Family History: Reviewed & Not Pertinent Review of Systems - Review of Systems Constitutional: Fever. denies: Chills, Diaphoresis, Weakness EENT: denies: Eye pain, Eye discharge Cardiovascular: denies: Chest pain, Palpitations, Heart racing, Syncope Respiratory: denies: Cough, Short of breath, Wheezing Gastrointestinal: Constipation. denies: Abdominal pain, Diarrhea, Nausea, Vomiting Genitourinary: No symptoms reported Female Genitourinary: Vaginal bleeding Musculoskeletal: No symptoms reported Skin: No symptoms reported Hematologic/Lymphatic: No symptoms reported Neurological/Psychological: No symptoms reported -: Yes All other systems reviewed and negative Physical Exam - Vital signs Vitals: Temp Pulse Resp BP Pulse Ox 99.9 F 131 H 18 143/76 H 98 01/23/18 17:30 01/23/18 17:30 01/23/18 17:30 01/23/18 17:30 01/23/18 17:30 - General General appearance: Appears well, Alert In distress: None - HEENT Head: Normocephalic, Atraumatic Eyes: Normal Pupils: PERRL - Respiratory Respiratory status: No respiratory distress Chest status: Nontender Breath sounds: Normal Chest palpation: Normal - Cardiovascular Rhythm: Regular Heart sounds: Normal auscultation Murmur: No - Abdominal Inspection: Normal Distension: No distension Bowel sounds: Normal Tenderness: Nontender Organomegaly: No organomegaly - Genitourinary External exam: Normal Speculum exam: Cervix closed. No: Cervix open, Vaginal discharge, Products of conception, Vaginal lacerations Vaginal bleeding: None - No active bleeding noted. Bimanuel exam: Normal, Other - [place]per[place] was Ms. Elva RN.. No: Cervical motion tender, Adnexal mass, Adnexal tenderness, Uterus enlarged - Back Back: Normal, Nontender - Extremities General upper extremity: Normal inspection, Nontender, Normal color, Normal ROM , Normal temperature General lower extremity: Normal inspection, Nontender, Normal color, Normal ROM , Normal temperature, Normal weight bearing. No: Rosie's sign - Neurological Neuro grossly intact: Yes Cognition: Normal Orientation: AAOx4 [place] Coma Scale Eye Opening: Spontaneous [place] Coma Scale Verbal: Oriented [place] Coma Scale Motor: Obeys Commands Hcarmaine Coma Scale Total: 15 Speech: Normal Motor strength normal: LUE, RUE, LLE, RLE Sensory: Normal - Psychological Associated symptoms: Normal affect, Normal mood - Skin Skin Temperature: Warm Skin Moisture: Dry Skin Color: Normal Course - Re-evaluation Re-evalutation: 01/23/18 21:38 Patient denies any abdominal pain or cough. She says she feels fine and she will want to go home. She was advised to follow-up with her [facility] doctor on Thursday. - Vital Signs Vital signs: Temp Pulse Resp BP Pulse Ox 98.5 F 102 H 14 125/75 98 01/23/18 21:16 01/23/18 21:16 01/23/18 21:16 01/23/18 21:16 01/23/18 21:16 - Laboratory Result Diagrams: 01/23/18 17:43 01/23/18 17:43 Laboratory results interpreted by me: 01/23/18 01/23/18 01/23/18 17:43 17:43 17:43 WBC 11.1 H RBC 3.42 L Hgb 9.7 L Hct 28.5 L RDW 16.5 H Seg Neutrophils % 82.6 H Lymphocytes % 9.4 L Absolute Neutrophils 9.2 H Sodium 136.7 L AST 51 H Alkaline Phosphatase 178 H Total Protein 6.2 L Albumin 3.1 L Urine Blood MODERATE H - Diagnostic Test Radiology reviewed: Image reviewed, Reports reviewed - Transfer of Care Notes: 01/23/18 21:37 Vaginal Bleeding Discharge - Discharge Clinical Impression: Vaginal bleeding, Viral syndrome Constipation Qualifiers: Constipation type: unspecified constipation type Qualified Code(s): K59.00 - Constipation, unspecified Condition: Stable Disposition: HOME, SELF-CARE Instructions: Viral Syndrome ([facility]) Additional Instructions: Please follow-up with your [facility] Dr. Hanson on Thursday morning. He will can take [id number] Tylenol or ibuprofen for fever. Return to the emergency room if her condition worsens. Prescriptions: Docusate Sodium [Colace 100 mg Capsule] 100 mg PO TID #60 capsule Referrals: DESMOND HANSON MD [ACTIVE STAFF] - Follow up as needed
[2018-01-23] MEDS ORDERED: NORMAL SALINE 1000 ML 1,000 ML IV ONE (17:40)
[2018-01-23] MEDS ORDERED: ACETAMINOPHEN 325 MG TABLET PO ONE (17:43)
[2018-01-23 18:12] LABS: ABSOLUTE MONOCYTES (AUTO) 0.8 10^3/uL (0.1-1.4); ABSOLUTE NEUT (AUTO) 9.2 10^3/uL (1.7-8.2); BASOPHILS % (AUTO) 0.3 % (0-2); EOSINOPHILS % (AUTO) 0.2 % (0-6); HEMATOCRIT 28.5 % (36.0-47.0); HEMOGLOBIN 9.7 g/dL (12.0-15.5); LYMPHOCYTES % (AUTO) 9.4 % (13-45); MEAN CORPUSCULAR HEMOGLOBIN 28.4 pg (27.0-33.4); MEAN CORPUSCULAR VOLUME 83 fl (80-97); MONOCYTES % (AUTO) 7.5 % (3-13); PLATELET COUNT 340 10^3/uL (150-450); RED BLOOD COUNT 3.42 10^6/uL (3.72-5.28); RED CELL DISTRIBUTION WIDTH 16.5 % (11.5-14.0); SEGMENTED NEUTROPHILS % (AUTO) 82.6 % (42-78); TOTAL CELLS COUNTED % (AUTO) 100 %; WHITE BLOOD COUNT 11.1 10^3/uL (4.0-10.5)
[2018-01-23 18:28] LABS: ALANINE AMINOTRANSFERASE 49 U/L (9-52); ALBUMIN 3.1 g/dL (3.5-5.0); ALKALINE PHOSPHATASE 178 U/L (38-126); ANION GAP 8 (5-19); ASPARTATE AMINO TRANSFERASE 51 U/L (14-36); BILIRUBIN,DIRECT 0.2 mg/dL (0.0-0.4); BILIRUBIN,TOTAL 0.4 mg/dL (0.2-1.3); BLOOD UREA NITROGEN 7 mg/dL (7-20); CALCIUM 8.8 mg/dL (8.4-10.2); CARBON DIOXIDE 25 mmol/L (22-30); CHLORIDE 104 mmol/L (98-107); GLUCOSE 92 mg/dL (75-110); POTASSIUM 3.9 mmol/L (3.6-5.0); SODIUM 136.7 mmol/L (137-145); TOTAL PROTEIN 6.2 g/dL (6.3-8.2)
--- NOTE | 2018-01-23 19:13 | RADIOLOGY REPORT (SQ) ---
EXAM DESCRIPTION: U/S NON OB PEL W/DOPPLER COMPLETED DATE/TIME: 01/23/2018 7:01 pm REASON FOR STUDY: Vaginal bleeding COMPARISON: None. TECHNIQUE: Dynamic and static grayscale images acquired of the pelvis via transabdominal approach an d recorded on PACS. Additional selected color Doppler and spectral images recorded. LIMITATIONS: None. FINDINGS: UTERUS: Contour normal. No mass. ENDOMETRIAL STRIPE: No evidence of retained products. CERVIX: No nabothian cysts. RIGHT OVARY AND DOPPLER: Normal size. No worrisome masses. Normal arterial vascular flow without evid ence for torsion. LEFT OVARY AND DOPPLER: Ovary not visualized. FREE FLUID: None noted. OTHER: No other significant finding. MEASUREMENTS: UTERUS: 10.3 x 0.7 x 8.6 cm ENDOMETRIAL STRIPE: 3 cm RIGHT OVARY: 3.2 x 1.8 x 2.9 cm LEFT OVARY: Not visualized. IMPRESSION: Expected appearance of uterus. No evidence of retained products. TECHNICAL DOCUMENTATION: JOB ID: [id number] [employer]- All Rights Reserved Rev-10/02 Reading location - IP/workstation name: [email or web address]
[2018-01-23 19:14] LABS: APPEARANCE,URINE CLEAR; BILIRUBIN,URINE NEGATIVE (NEGATIVE); COLOR,URINE STRAW; GLUCOSE, URINE NEGATIVE (NEGATIVE); KETONES,URINE NEGATIVE (NEGATIVE); LEUKOCYTE ESTERASE,URINE NEGATIVE (NEGATIVE); NITRITE,URINE NEGATIVE (NEGATIVE); PROTEIN,URINE NEGATIVE (NEGATIVE); URINE SPECIFIC GRAVITY 1.004; UROBILINOGEN,URINE NEGATIVE mg/dL (<2.0)
[2018-01-23 20:31] LABS: BACTERIA (WET MOUNT) 4+ BACTERIA SEEN; RBCS (WET MOUNT) 2+ RBCS SEEN; T.VAGINALIS (WET MOUNT) NO TRICHOMONAS SEEN; WBCS (WET MOUNT) 4+ WBCS SEEN; YEAST (WET MOUNT) NO YEAST SEEN
[2018-01-23 21:19] VITALS: BP 125/75
[2018-01-23 21:53] LABS: CHLAM PCR NOT DETECTED (NOT DETECT); GON PCR NOT DETECTED (NOT DETECT)
== END 2018-01-23 21:20 | disposition home or self-care (01) ==
LOC: ER 17:13
DX: N93.9 Abnormal uterine and vaginal bleeding, unspecified (principal); K59.00 Constipation, unspecified; B34.9 Viral infection, unspecified
CPT/HCPCS: 99284; 96360; 96361; 51701; 86900; 86901; 36415; 87040; 87086; 87210; 86850; 85025; 80053; 81001; 87491; 87591; 76856; 93976; J7030